=== PATIENT | female | born 1950 | race Hispanic/Latino ===

== ENCOUNTER 2019-02-15 20:44 | Emergency (ER) | payer OTHER ==
[~2019-02-15 20:44] MED LIST: ASPI-555 PO; BUPR150T8 PO; CALC-190 PO; CANA1TAB3 PO; INSU100C6 SQ; LOSA100T58 PO; METO-391 PO; OMEG300C3 PO; ROSU10TA PO
[2019-02-15 21:53] LABS: BASOPHILS % (AUTO) 0.9 % (0.0-5.0); EOSINOPHILS % (AUTO) 0.1 % (0.0-8.0); HEMATOCRIT 33.9 % (36-48); LYMPHOCYTES % (AUTO) 13.4 % (21.0-51.0); MEAN CORPUSCULAR HEMOGLOBIN 28.4 pg (27.0-33.0); MEAN CORPUSCULAR HGB CONC 33.4 g/dL (32.0-36.0); MEAN CORPUSCULAR VOLUME 84.9 fL (79-99); MONOCYTES % (AUTO) 5.9 % (3.0-13.0); NEUTROPHILS % (AUTO) 79.7 % (40.0-77.0); NUCLEATED RED BLOOD CELLS 0.1 % (0.0-0.19); PLATELET COUNT (AUTO) 189 K/uL (130-400); RED CELL DISTRIBUTION WIDTH 14.5 % (11.0-15.5); WHITE BLOOD COUNT (AUTO) 8.1 K/uL (4.8-10.8)
[2019-02-15 22:06] LABS: CREATININE 1.6 mg/dL (0.5-1.5); POTASSIUM 4.4 mmol/L (3.5-5.1)
[2019-02-15 22:11] LABS: APPEARANCE,URINE CLOUDY (CLEAR); BILIRUBIN,URINE NEGATIVE (NEGATIVE); COLOR,URINE YELLOW (YELLOW); GLUCOSE, URINE (UA) >=1000 mg/dL (NEGATIVE); KETONES,URINE NEGATIVE (NEGATIVE); LEUKOCYTE ESTERASE ,URINE TRACE (NEGATIVE); NITRATE,URINE POSITIVE (NEGATIVE); OCCULT BLOOD,URINE MODERATE (NEGATIVE); PROTEIN,URINE >=300 mg/dL (NEGATIVE); UROBILINOGEN,URINE 0.2 mg/dL (0.2-1.0)
[2019-02-15 22:15] LABS: ALBUMIN 3.1 g/dL (3.5-5.0); BILIRUBIN,TOTAL 0.5 mg/dL (0.2-1.0); TOTAL PROTEIN, SERUM 6.9 g/dL (6.0-8.3)
[2019-02-15] MEDS ORDERED: 0.9% SODIUM CHLORIDE 500 ML IV BAG IV ONE (22:34)
[2019-02-15 22:41] LABS: INR 0.95 (0.85-1.15); PARTIAL THROMBOPLASTIN TIME 29.3 SEC (26.3-35.5)
[2019-02-15 22:44] LABS: AMORPHOUS SEDIMENT,UR Moderate /LPF (None Seen); BACTERIA,URINE Many /HPF (None Seen); MUCUS,URINE Rare LPF (None Seen); SQUAMOUS EPITHELIAL CELL,UR Rare /HPF (0-2); WBC,URINE 51-100 /HPF (0-1)
[2019-02-15] MEDS ORDERED: 0.9% SODIUM CHLORIDE 1000 ML IV BAG IV ONE (23:12)
[2019-02-15] MEDS ORDERED: CEFTRIAXONE SODIUM 1 GM ONE (23:51)
== END 2019-02-16 00:36 | disposition home or self-care (01) ==
LOC: EDH 20:44
DX: N39.0 Urinary tract infection, site not specified (principal); E10.9 Type 1 diabetes mellitus without complications; I10 Essential (primary) hypertension; E78.5 Hyperlipidemia, unspecified; I25.810 Atherosclerosis of coronary artery bypass graft(s) without angina pectoris; Z86.73 Personal history of transient ischemic attack (TIA), and cerebral infarction without residual deficits; Z90.710 Acquired absence of both cervix and uterus; Z72.0 Tobacco use
CPT/HCPCS: 36415; 70450; 80053; 81001; 85025; 85610; 85730; 87077; 87088; 87186; 87804 ×2; 96361; 96374; 99284; J0696; J7030; J7040

== ENCOUNTER → 2020-09-12 | Outpatient (CLI) | payer OTHER ==
[~2020-09-12] MED LIST changes: -ASPI-555 PO; +ASPI-556 PO; +REGADENOSON 0.4 MG/5 ML PF SYG IVP SCH; -ROSU10TA PO; +ROSU10TA22 PO
== END | disposition home or self-care (01) ==
LOC: SHCH 08:18
PROVIDERS: ATTEND Internal Medicine Cardiovascular Disease
DX: R07.9 Chest pain, unspecified (principal); R06.00 Dyspnea, unspecified
CPT/HCPCS: 78452; 93017; 96374; A9500 ×2; J2785

== ENCOUNTER 2021-04-24 17:24 | Observation (INO) | payer OTHER ==
[~2021-04-24] VITALS: Ht 157.5 cm; Wt 56.7 kg
[~2021-04-24 17:24] MED LIST changes: -REGADENOSON 0.4 MG/5 ML PF SYG IVP SCH
[2021-04-24 18:07] LABS: EOSINOPHILS % (AUTO) 2.8 % (0.0-8.0); HEMATOCRIT 32.2 % (36-48); LYMPHOCYTES % (AUTO) 30.1 % (21.0-51.0); MEAN CORPUSCULAR HEMOGLOBIN 29.1 pg (27.0-33.0); MEAN CORPUSCULAR HGB CONC 32.6 g/dL (32.0-36.0); MEAN CORPUSCULAR VOLUME 89.2 fL (79-99); MONOCYTES % (AUTO) 5.9 % (3.0-13.0); NEUTROPHILS % (AUTO) 59.9 % (40.0-77.0); PLATELET COUNT (AUTO) 238 K/uL (130-400); RED BLOOD CELL COUNT(AUTO) 3.61 MIL/uL (4.00-5.50); RED CELL DISTRIBUTION WIDTH 13.6 % (11.0-15.5); WHITE BLOOD COUNT (AUTO) 10.2 K/uL (4.8-10.8)
[2021-04-24 18:23] LABS: CREATININE 1.9 mg/dL (0.5-1.5); POTASSIUM 5.4 mmol/L (3.5-5.1)
[2021-04-24 18:25] LABS: B-TYPE NATRIURETIC PEPTIDE 743 pg/mL (0-100)
[2021-04-24] MEDS ORDERED: ASPIRIN 325 MG TABLET ONE (18:27)
[2021-04-24 18:28] LABS: ALBUMIN 3.3 g/dL (3.5-5.0); BILIRUBIN,TOTAL 0.4 mg/dL (0.2-1.0); INR 1.01 (0.85-1.15)
[2021-04-24 18:29] LABS: PARTIAL THROMBOPLASTIN TIME 25.8 SEC (26.3-35.5)
[2021-04-24] MEDS ORDERED: ONDANSETRON HCL 4 MG/2 ML VIAL IV PRN (20:30)
[2021-04-24] MEDS ORDERED: NITROGLYCERIN 0.4 MG SL TAB SL PRN (20:30)
[2021-04-24] MEDS ORDERED: SODIUM CHLORIDE 0.9% 1000ML 1,000 ML IV SCH (20:30)
[2021-04-24] MEDS ORDERED: LACTULOSE 20 GM/30 ML UDCUP PO PRN (20:30)
[2021-04-24] MEDS ORDERED: ACETAMINOPHEN 325 MG TAB PO PRN ×2 (20:30)
[2021-04-24] MEDS: HEPARIN SODIUM 5000UNIT/ML 1ML VIAL SQ SCH (21:00)
[2021-04-24] MEDS: INSULIN HUMULIN R 100 UNIT/ML 3ML SQ SCH (21:00)
[2021-04-24] MEDS: FAMOTIDINE 20MG TAB 20 MG TAB PO SCH (21:00)
[2021-04-24] MEDS ORDERED: SODIUM POLYSTYRENE SULFONATE 15 GM/60 ML ML ONE (21:03)
[2021-04-24] MEDS ORDERED: HEPARIN SODIUM 5000UNIT/ML 1ML VIAL ONE (21:03)
[2021-04-24] MEDS ORDERED: SODIUM CHLORIDE 0.9% 1000ML 1,000 ML IV ONE (21:04)
[2021-04-24] MEDS ORDERED: FAMOTIDINE/PF 20 MG/2 ML VIAL IV ONE (21:04)
[2021-04-24 21:07] LABS: ABG OXYGEN SATURATION 41.4 % (95.0-99.0); HCO3,VENOUS BLOOD GAS 20.4 (21.0-28.0); PCO2,VENOUS BLOOD GAS 39 (32-45); PH,VENOUS BLOOD GAS 7.333 (7.350-7.450)
[2021-04-24] MEDS ORDERED: INSULIN HUMULIN R 100 UNIT/ML 3ML ONE (21:21)
[2021-04-24 21:24] LABS: ALBUMIN 3.2 g/dL (3.5-5.0); BILIRUBIN,TOTAL 0.3 mg/dL (0.2-1.0); CREATININE 2.2 mg/dL (0.5-1.5); POTASSIUM 4.8 mmol/L (3.5-5.1); TOTAL PROTEIN, SERUM 6.6 g/dL (6.0-8.3)
[2021-04-24 21:33] LABS: THYROID STIMULATING HORMONE 5.4 uIU/mL (0.36-3.74)
[2021-04-24 22:03] LABS: APPEARANCE,URINE Cloudy (CLEAR); BILIRUBIN,URINE Negative (NEGATIVE); COLOR,URINE Yellow (YELLOW); GLUCOSE, URINE (UA) Negative (NEGATIVE); KETONES,URINE Trace mg/dL (NEGATIVE); LEUKOCYTE ESTERASE ,URINE Moderate (NEGATIVE); NITRATE,URINE Negative (NEGATIVE); OCCULT BLOOD,URINE Negative (NEGATIVE); PROTEIN,URINE 300 mg/dL (NEGATIVE)
[2021-04-24 22:47] LABS: BACTERIA,URINE Many /HPF (None Seen); RBC,URINE 0-1 /HPF (0-1); SQUAMOUS EPITHELIAL CELL,UR None Seen /HPF (0-2)
[2021-04-25] MEDS: CEFTRIAXONE SODIUM 1 GM IVP SCH (06:15)
[2021-04-25 06:20] LABS: BASOPHILS % (AUTO) 0.9 % (0.0-5.0); HEMATOCRIT 34.2 % (36-48); LYMPHOCYTES % (AUTO) 16.9 % (21.0-51.0); MEAN CORPUSCULAR HEMOGLOBIN 29.3 pg (27.0-33.0); MEAN CORPUSCULAR HGB CONC 32.5 g/dL (32.0-36.0); MEAN CORPUSCULAR VOLUME 90.2 fL (79-99); MONOCYTES % (AUTO) 3.5 % (3.0-13.0); NEUTROPHILS % (AUTO) 77.3 % (40.0-77.0); PLATELET COUNT (AUTO) 237 K/uL (130-400); RED BLOOD CELL COUNT(AUTO) 3.79 MIL/uL (4.00-5.50); RED CELL DISTRIBUTION WIDTH 13.9 % (11.0-15.5); WHITE BLOOD COUNT (AUTO) 11.2 K/uL (4.8-10.8)
[2021-04-25 06:31] LABS: HEMOGLOBIN A1C 8.4 % (4.0-6.0)
[2021-04-25 06:34] LABS: ALBUMIN 3.5 g/dL (3.5-5.0); BILIRUBIN,TOTAL 0.5 mg/dL (0.2-1.0); CREATININE 1.8 mg/dL (0.5-1.5); MAGNESIUM 2.2 mg/dL (1.80-2.40); PHOSPHORUS 4.7 mg/dL (2.5-4.9); POTASSIUM 4.5 mmol/L (3.5-5.1); TOTAL PROTEIN, SERUM 7.1 g/dL (6.0-8.3)
[2021-04-25] MEDS: INSULIN HUMULIN R 100 UNIT/ML 3ML SQ SCH ×4 (07:30→21:00)
[2021-04-25] MEDS: HEPARIN SODIUM 5000UNIT/ML 1ML VIAL SQ SCH ×2 (09:00→21:00)
[2021-04-25] MEDS ORDERED: HEPARIN SODIUM 5000UNIT/ML 1ML VIAL ONE ×2 (09:15→21:19)
[2021-04-25] MEDS ORDERED: CEFTRIAXONE SODIUM 1 GM ONE (09:15)
[2021-04-25 12:41] LABS: ALBUMIN 3.4 g/dL (3.5-5.0); BILIRUBIN,TOTAL 0.3 mg/dL (0.2-1.0); CREATININE 1.8 mg/dL (0.5-1.5); POTASSIUM 4.1 mmol/L (3.5-5.1); TOTAL PROTEIN, SERUM 7.3 g/dL (6.0-8.3)
[2021-04-25 15:39] LABS: ALBUMIN 3.1 g/dL (3.5-5.0); BILIRUBIN,TOTAL 0.3 mg/dL (0.2-1.0); CREATININE 1.8 mg/dL (0.5-1.5); POTASSIUM 4.3 mmol/L (3.5-5.1); TOTAL PROTEIN, SERUM 6.7 g/dL (6.0-8.3)
[2021-04-25] MEDS: FAMOTIDINE 20MG TAB 20 MG TAB PO SCH (21:00)
[2021-04-25] MEDS ORDERED: FAMOTIDINE 20MG TAB 20 MG TAB ONE (21:19)
[2021-04-25] MEDS ORDERED: INSULIN HUMULIN R 100 UNIT/ML 3ML ONE (21:20)
[2021-04-26 05:55] LABS: HEMATOCRIT 32.1 % (36-48); MEAN CORPUSCULAR HEMOGLOBIN 29.5 pg (27.0-33.0); MEAN CORPUSCULAR VOLUME 89.4 fL (79-99); RED BLOOD CELL COUNT(AUTO) 3.59 MIL/uL (4.00-5.50); RED CELL DISTRIBUTION WIDTH 13.8 % (11.0-15.5); WHITE BLOOD COUNT (AUTO) 10.3 K/uL (4.8-10.8)
[2021-04-26 06:09] LABS: CREATININE 1.6 mg/dL (0.5-1.5); MAGNESIUM 2.1 mg/dL (1.80-2.40); POTASSIUM 4.3 mmol/L (3.5-5.1)
[2021-04-26] MEDS: CEFTRIAXONE SODIUM 1 GM IVP SCH (06:15)
[2021-04-26] MEDS ORDERED: CEFTRIAXONE SODIUM 1 GM ONE (08:20)
[2021-04-26] MEDS ORDERED: SODIUM CHLORIDE 0.9% 50 ML IV ONE (08:21)
[2021-04-26] MEDS ORDERED: LOSARTAN 100 MG TABLET PO SCH (09:00)
[2021-04-26] MEDS ORDERED: INSULIN LISPRO 100 UNIT/ML 3ML SQ SCH (09:00)
[2021-04-26] MEDS ORDERED: FISH OIL 1000 MG/CAP PO SCH (09:00)
[2021-04-26] MEDS ORDERED: INVOKAMET PO SCH (09:00)
[2021-04-26] MEDS ORDERED: BUPROPION HCL 150 MG TABLET.SA PO SCH (09:00)
[2021-04-26] MEDS ORDERED: ASPIRIN 81 MG EC TAB PO SCH (09:00)
[2021-04-26] MEDS ORDERED: ATORVASTATIN CALCIUM 20 MG TABLET PO SCH (09:00)
== END 2021-04-26 14:00 | disposition home or self-care (01) ==
LOC: EDH 17:24 → EDHIP 20:16 → 3AH 04-26 08:18
PROVIDERS: ADMIT Internal Medicine Critical Care Medicine; ATTEND Internal Medicine Critical Care Medicine
DX: I49.8 Other specified cardiac arrhythmias (principal); N17.9 Acute kidney failure, unspecified; I12.9 Hypertensive chronic kidney disease with stage 1 through stage 4 chronic kidney disease, or unspecified chronic kidney disease; E11.22 Type 2 diabetes mellitus with diabetic chronic kidney disease; N18.4 Chronic kidney disease, stage 4 (severe); E78.5 Hyperlipidemia, unspecified; I49.3 Ventricular premature depolarization; N39.0 Urinary tract infection, site not specified; B96.20 Unspecified Escherichia coli [E. coli] as the cause of diseases classified elsewhere; E87.5 Hyperkalemia; I25.10 Atherosclerotic heart disease of native coronary artery without angina pectoris; F17.200 Nicotine dependence, unspecified, uncomplicated; Z86.73 Personal history of transient ischemic attack (TIA), and cerebral infarction without residual deficits; Z90.710 Acquired absence of both cervix and uterus; Z95.1 Presence of aortocoronary bypass graft; Z79.4 Long term (current) use of insulin; Z79.82 Long term (current) use of aspirin; Z79.899 Other long term (current) drug therapy
CPT/HCPCS: 36415 ×3; 36600; 71045; 76770; 80048; 80053 ×5; 81001; 82550; 82803; 82948 ×4; 83036; 83735 ×3; 83880; 84100; 84439; 84443; 84484; 85025 ×2; 85027; 85610; 85730; 87077; 87088; 87186; 93005; 99285; G0378 ×42; J0696 ×2; J1644 ×3; J1815 ×2; J3490; J7030

== ENCOUNTER 2022-11-06 17:27 | Inpatient (IN) | payer OTHER ==
[~2022-11-06] VITALS: Ht 157.5 cm; Wt 54.1 kg
[~2022-11-06 17:27] MED LIST changes: +AMIO200T68 PO; +AMLO-257 PO; +BUPR-113 PO; -BUPR150T8 PO; +MIDO2.5T PO; +ROSU20TA31 PO
[2022-11-06] MEDS ORDERED: CLONIDINE HCL 0.2 MG TABLET PO ONE (18:00)
[2022-11-06 18:30] LABS: BASOPHILS % (AUTO) 1.3 % (0.0-5.0); EOSINOPHILS % (AUTO) 9.1 % (0.0-8.0); HEMATOCRIT 29.7 % (36-48); LYMPHOCYTES % (AUTO) 25.4 % (21.0-51.0); MEAN CORPUSCULAR HEMOGLOBIN 29.3 pg (27.0-33.0); MEAN CORPUSCULAR VOLUME 88.7 fL (79-99); MONOCYTES % (AUTO) 6.7 % (3.0-13.0); NEUTROPHILS % (AUTO) 57.2 % (40.0-77.0); PLATELET COUNT (AUTO) 283 K/uL (130-400); RED BLOOD CELL COUNT(AUTO) 3.35 MIL/uL (4.00-5.50); RED CELL DISTRIBUTION WIDTH 14.5 % (11.0-15.5); WHITE BLOOD COUNT (AUTO) 9.8 K/uL (4.8-10.8)
[2022-11-06 18:38] LABS: CREATININE 3.7 mg/dL (0.5-1.5); POTASSIUM 3.6 mmol/L (3.5-5.1)
[2022-11-06 18:47] LABS: ALBUMIN 2.5 g/dL (3.5-5.0); TOTAL PROTEIN, SERUM 6.4 g/dL (6.0-8.3)
[2022-11-06] MEDS ORDERED: ASPIRIN 81MG CHEW TAB PO ONE (19:00)
[2022-11-06] MEDS ORDERED: HEPARIN 5,000 UNIT VIAL IV ONE (19:00)
[2022-11-06] MEDS ORDERED: NITROGLYCERIN 1GM OINT 1 INCH/1GM TD ONE (19:30)
[2022-11-06] MEDS ORDERED: HEPARIN 25,000 UNITS/250ML D5W 250 ML IV SCH (19:30)
[2022-11-06] MEDS ORDERED: CLOPIDOGREL 300MG TAB PO ONE (19:30)
[2022-11-06 19:52] LABS: INR 0.93 (0.85-1.15); PROTHROMBIN TIME 9.7 SEC (9.6-11.6)
[2022-11-06 19:53] LABS: PARTIAL THROMBOPLASTIN TIME 26.8 SEC (26.3-35.5)
[2022-11-06 20:47] LABS: APPEARANCE,URINE CLOUDY (CLEAR); BILIRUBIN,URINE NEGATIVE (NEGATIVE); COLOR,URINE LIGHT-YELLOW (YELLOW); GLUCOSE, URINE (UA) 500 mg/dL (NEGATIVE); KETONES,URINE NEGATIVE (NEGATIVE); LEUKOCYTE ESTERASE ,URINE NEGATIVE Leu/uL (NEGATIVE); NITRATE,URINE NEGATIVE (NEGATIVE); OCCULT BLOOD,URINE SMALL (NEGATIVE); PH,URINE 6.5 (5.0-8.0); PROTEIN,URINE 300 mg/dL (NEGATIVE); UROBILINOGEN,URINE 0.2 mg/dL (0.2-1.0)
[2022-11-06 20:49] LABS: BACTERIA,URINE RARE /HPF (None Seen); SQUAMOUS EPITHELIAL CELL,UR MANY /HPF (0-2)
[2022-11-06] MEDS ORDERED: ONDANSETRON 4MG INJ IVP PRN (21:30)
[2022-11-06] MEDS ORDERED: ACETAMINOPHEN 325 MG TAB PO PRN (21:30)
[2022-11-06] MEDS ORDERED: MORPHINE 2 MG SYG IVP PRN (21:30)
[2022-11-06] MEDS ORDERED: HYDROCODONE/ACETAMINOPHEN 5/325 MG TAB PO PRN (21:30)
[2022-11-06] MEDS ORDERED: HYDRALAZINE 20MG/ML VIAL IV PRN (21:30)
[2022-11-06] MEDS ORDERED: 0.9%NACL 1000ML 1,000 ML IV SCH (21:30)
[2022-11-07] VITALS (9 sets, daily range): BP systolic 142–180; BP diastolic 64–89
[2022-11-07] MEDS: INSULIN HUMULIN R 100 UNIT/ML 3ML SQ SCH ×4 (05:50→21:08)
[2022-11-07 06:01] LABS: HEMATOCRIT 25.5 % (36-48); MEAN CORPUSCULAR HGB CONC 33.3 g/dL (32.0-36.0); RED BLOOD CELL COUNT(AUTO) 2.93 MIL/uL (4.00-5.50); RED CELL DISTRIBUTION WIDTH 14.6 % (11.0-15.5); WHITE BLOOD COUNT (AUTO) 9.2 K/uL (4.8-10.8)
[2022-11-07 06:24] LABS: CREATININE 3.6 mg/dL (0.5-1.5); MAGNESIUM 1.9 mg/dL (1.80-2.40); PHOSPHORUS 4.4 mg/dL (2.5-4.9)
[2022-11-07 07:17] LABS: INR 0.95 (0.85-1.15); PROTHROMBIN TIME 10.3 SEC (9.6-11.6)
[2022-11-07 07:18] LABS: PARTIAL THROMBOPLASTIN TIME 108.2 SEC (26.3-35.5)
[2022-11-07] MEDS: METOPROLOL SUCCINATE 50 MG TAB.SR.24H PO SCH (08:25)
[2022-11-07] MEDS: ASPIRIN 81MG CHEW TAB PO SCH (08:25)
[2022-11-07] MEDS ORDERED: GUAIFENESIN SUGAR-FREE 100 MG/5 ML UDCUP PO PRN (13:00)
[2022-11-07] MEDS ORDERED: 0.9%NACL 100ML 100 ML ONE (15:25)
[2022-11-07] MEDS: CEFTRIAXONE 2GM VIAL IVP SCH (16:03)
[2022-11-07] MEDS ORDERED: HEPARIN 5,000 UNIT VIAL SQ SCH (17:00)
[2022-11-07] MEDS: FUROSEMIDE 20MG VIAL IV SCH (18:36)
[2022-11-07 20:13] LABS: ABG BASE EXCESS -13.4 mmol/L (-2.0-3.0); ABG HCO3 13.9 mmol/L (21.0-28.0); ABG OXYGEN SATURATION 92.4 % (95.0-99.0); ABG PCO2 37 mmHg (32-45)
[2022-11-07] MEDS ORDERED: LORAZEPAM 2 MG/ML 1 ML VIAL ONE (20:24)
[2022-11-07] MEDS ORDERED: LORAZEPAM 2 MG/ML 1 ML VIAL IVP SCH (20:30)
[2022-11-07] MEDS ORDERED: FUROSEMIDE 40MG VIAL IV SCH (20:30)
[2022-11-07] MEDS: ATORVASTATIN 40 MG TABLET PO SCH (20:33)
[2022-11-07] MEDS ORDERED: SIMVASTATIN 20 MG TABLET PO SCH (21:00)
[2022-11-07] MEDS: METRONIDAZOLE 500MG/100ML BAG 100 ML IVPB SCH (21:05)
[2022-11-07] MEDS: HEPARIN 5,000 UNIT VIAL SQ SCH (21:07)
[2022-11-07 22:22] LABS: ABG BASE EXCESS -4.4 mmol/L (-2.0-3.0); ABG HCO3 20.4 mmol/L (21.0-28.0); ABG OXYGEN SATURATION 99.4 % (95.0-99.0); ABG PCO2 37 mmHg (32-45)
[2022-11-08] VITALS: BP 135/72
[2022-11-08 04:00] VITALS: BP 149/78
[2022-11-08 04:30] LABS: HEMOGLOBIN A1C 7.8 % (4.0-6.0)
[2022-11-08 04:51] LABS: ALBUMIN 2.1 g/dL (3.5-5.0); CREATININE 3.8 mg/dL (0.5-1.5); MAGNESIUM 1.9 mg/dL (1.80-2.40); POTASSIUM 4.1 mmol/L (3.5-5.1); THYROID STIMULATING HORMONE 13.01 uIU/mL (0.36-3.74); TOTAL PROTEIN, SERUM 5.7 g/dL (6.0-8.3)
[2022-11-08 05:39] LABS: HEMATOCRIT 26.6 % (36-48); MEAN CORPUSCULAR HEMOGLOBIN 29.7 pg (27.0-33.0); MEAN CORPUSCULAR HGB CONC 33.8 g/dL (32.0-36.0); MEAN CORPUSCULAR VOLUME 87.8 fL (79-99); RED BLOOD CELL COUNT(AUTO) 3.03 MIL/uL (4.00-5.50); RED CELL DISTRIBUTION WIDTH 14.7 % (11.0-15.5); WHITE BLOOD COUNT (AUTO) 11.7 K/uL (4.8-10.8)
[2022-11-08] MEDS: LEVOTHYROXINE 50 MCG TABLET PO SCH (05:48)
[2022-11-08] MEDS: FUROSEMIDE 20MG VIAL IV SCH (05:48)
[2022-11-08] MEDS: METRONIDAZOLE 500MG/100ML BAG 100 ML IVPB SCH ×3 (05:48→20:52)
[2022-11-08] MEDS: INSULIN HUMULIN R 100 UNIT/ML 3ML SQ SCH ×4 (06:59→20:55)
[2022-11-08 07:48] VITALS: BP 138/59
[2022-11-08] MEDS: FAMOTIDINE 20MG TAB PO SCH (08:54)
[2022-11-08] MEDS: METOPROLOL SUCCINATE 50 MG TAB.SR.24H PO SCH (08:54)
[2022-11-08] MEDS: ASPIRIN 81MG CHEW TAB PO SCH (08:54)
[2022-11-08] MEDS: HEPARIN 5,000 UNIT VIAL SQ SCH ×2 (08:56→19:51)
[2022-11-08 12:02] VITALS: BP 138/67
[2022-11-08] MEDS ORDERED: 0.9%NACL 100ML 100 ML ONE (14:53)
[2022-11-08] MEDS: CEFTRIAXONE 2GM VIAL IVP SCH (14:57)
[2022-11-08 16:19] VITALS: BP 145/55
[2022-11-08] MEDS: FUROSEMIDE 40MG VIAL IV SCH (17:09)
[2022-11-08] MEDS: IPRATROPIUM/ALBUTEROL SULFATE 3 ML SOLUTION IH SCH (18:34)
[2022-11-08 19:12] VITALS: BP 178/76
[2022-11-08] MEDS: ATORVASTATIN 40 MG TABLET PO SCH (19:52)
[2022-11-09] VITALS (7 sets, daily range): BP systolic 126–178; BP diastolic 52–82
[2022-11-09] MEDS: IPRATROPIUM/ALBUTEROL SULFATE 3 ML SOLUTION IH SCH ×5 (01:32→23:52)
[2022-11-09 04:14] LABS: BASOPHILS % (AUTO) 1.3 % (0.0-5.0); EOSINOPHILS % (AUTO) 3.3 % (0.0-8.0); HEMATOCRIT 25.3 % (36-48); LYMPHOCYTES % (AUTO) 18.6 % (21.0-51.0); MEAN CORPUSCULAR HEMOGLOBIN 29.2 pg (27.0-33.0); MEAN CORPUSCULAR HGB CONC 32.8 g/dL (32.0-36.0); MEAN CORPUSCULAR VOLUME 89.1 fL (79-99); MONOCYTES % (AUTO) 7.2 % (3.0-13.0); NEUTROPHILS % (AUTO) 69.3 % (40.0-77.0); PLATELET COUNT (AUTO) 249 K/uL (130-400); RED BLOOD CELL COUNT(AUTO) 2.84 MIL/uL (4.00-5.50); RED CELL DISTRIBUTION WIDTH 14.6 % (11.0-15.5); WHITE BLOOD COUNT (AUTO) 11.7 K/uL (4.8-10.8)
[2022-11-09 04:39] LABS: % IRON SATURATION 14.5 % (22-44)
[2022-11-09 04:44] LABS: CREATININE 4.4 mg/dL (0.5-1.5); MAGNESIUM 1.6 mg/dL (1.80-2.40); PHOSPHORUS 5.4 mg/dL (2.5-4.9); POTASSIUM 3.3 mmol/L (3.5-5.1); TOTAL PROTEIN, SERUM 5.5 g/dL (6.0-8.3)
[2022-11-09] MEDS: METRONIDAZOLE 500MG/100ML BAG 100 ML IVPB SCH ×3 (05:20→20:37)
[2022-11-09] MEDS: FUROSEMIDE 40MG VIAL IV SCH (05:21)
[2022-11-09] MEDS: LEVOTHYROXINE 50 MCG TABLET PO SCH (05:21)
[2022-11-09] MEDS ORDERED: MAGNESIUM 2GM PREMIX 50ML 50 ML IV PRN (05:30)
[2022-11-09] MEDS ORDERED: POTASSIUM CHLORIDE 10MEQ SR TAB PO SCH (05:30)
[2022-11-09] MEDS: INSULIN HUMULIN R 100 UNIT/ML 3ML SQ SCH ×4 (06:04→19:40)
[2022-11-09] MEDS: PAROXETINE HCL 20 MG TABLET PO SCH (09:48)
[2022-11-09] MEDS: ASPIRIN 81MG CHEW TAB PO SCH (09:48)
[2022-11-09] MEDS: FAMOTIDINE 20MG TAB PO SCH (09:48)
[2022-11-09] MEDS: METOPROLOL SUCCINATE 50 MG TAB.SR.24H PO SCH (09:48)
[2022-11-09] MEDS: HEPARIN 5,000 UNIT VIAL SQ SCH ×2 (09:56→20:44)
[2022-11-09] MEDS: AMLODIPINE 5 MG TAB PO SCH (11:45)
[2022-11-09] MEDS ORDERED: IRON SUCROSE COMPLEX 100 MG in 0.9%NACL 50ML 50 ML IV SCH (13:00)
[2022-11-09] MEDS: IRON SUCROSE COMPLEX 100 MG/5 ML VIAL IVP SCH (13:54)
[2022-11-09] MEDS: CEFTRIAXONE 2GM VIAL IVP SCH (13:54)
[2022-11-09] MEDS: ATORVASTATIN 40 MG TABLET PO SCH (20:37)
[2022-11-10 04:09] VITALS: BP 156/73
[2022-11-10 04:10] LABS: BASOPHILS % (AUTO) 1.6 % (0.0-5.0); EOSINOPHILS % (AUTO) 7.5 % (0.0-8.0); HEMATOCRIT 26.4 % (36-48); LYMPHOCYTES % (AUTO) 15.1 % (21.0-51.0); MEAN CORPUSCULAR HEMOGLOBIN 29.2 pg (27.0-33.0); MEAN CORPUSCULAR HGB CONC 32.6 g/dL (32.0-36.0); MEAN CORPUSCULAR VOLUME 89.5 fL (79-99); MONOCYTES % (AUTO) 6.5 % (3.0-13.0); NEUTROPHILS % (AUTO) 68.9 % (40.0-77.0); PLATELET COUNT (AUTO) 260 K/uL (130-400); RED BLOOD CELL COUNT(AUTO) 2.95 MIL/uL (4.00-5.50); RED CELL DISTRIBUTION WIDTH 14.6 % (11.0-15.5); WHITE BLOOD COUNT (AUTO) 10.3 K/uL (4.8-10.8)
[2022-11-10 04:43] LABS: ALBUMIN 2.1 g/dL (3.5-5.0); CREATININE 4.3 mg/dL (0.5-1.5); MAGNESIUM 2.3 mg/dL (1.80-2.40); POTASSIUM 3.3 mmol/L (3.5-5.1); TOTAL PROTEIN, SERUM 5.7 g/dL (6.0-8.3)
[2022-11-10] MEDS: LEVOTHYROXINE 50 MCG TABLET PO SCH (06:47)
[2022-11-10] MEDS: METRONIDAZOLE 500MG/100ML BAG 100 ML IVPB SCH ×3 (06:47→20:44)
[2022-11-10] MEDS: INSULIN HUMULIN R 100 UNIT/ML 3ML SQ SCH ×4 (06:47→21:00)
[2022-11-10] MEDS: IPRATROPIUM/ALBUTEROL SULFATE 3 ML SOLUTION IH SCH ×4 (06:57→23:43)
[2022-11-10 07:58] VITALS: BP 152/74
[2022-11-10] MEDS: PAROXETINE HCL 20 MG TABLET PO SCH (09:04)
[2022-11-10] MEDS: FAMOTIDINE 20MG TAB PO SCH (09:04)
[2022-11-10] MEDS: AMLODIPINE 5 MG TAB PO SCH (09:05)
[2022-11-10] MEDS: IRON SUCROSE COMPLEX 100 MG/5 ML VIAL IVP SCH (09:05)
[2022-11-10] MEDS: ASPIRIN 81MG CHEW TAB PO SCH (09:05)
[2022-11-10] MEDS: METOPROLOL SUCCINATE 50 MG TAB.SR.24H PO SCH (09:13)
[2022-11-10] MEDS: HEPARIN 5,000 UNIT VIAL SQ SCH ×2 (09:23→20:45)
[2022-11-10 12:11] VITALS: BP 145/57
[2022-11-10] MEDS: CEFTRIAXONE 2GM VIAL IVP SCH (15:27)
[2022-11-10] MEDS ORDERED: KCL 20 MEQ ERTAB PO ONE (16:00)
[2022-11-10 16:26] VITALS: BP 140/70
[2022-11-10 20:00] VITALS: BP 150/71
[2022-11-10] MEDS: ATORVASTATIN 40 MG TABLET PO SCH (20:44)
[2022-11-11] VITALS: BP 144/77
[2022-11-11 04:00] VITALS: BP 149/67
[2022-11-11 04:12] LABS: HEMATOCRIT 25.1 % (36-48); MEAN CORPUSCULAR HEMOGLOBIN 29.6 pg (27.0-33.0); MEAN CORPUSCULAR HGB CONC 33.1 g/dL (32.0-36.0); MEAN CORPUSCULAR VOLUME 89.6 fL (79-99); RED BLOOD CELL COUNT(AUTO) 2.8 MIL/uL (4.00-5.50); RED CELL DISTRIBUTION WIDTH 14.6 % (11.0-15.5); WHITE BLOOD COUNT (AUTO) 11.3 K/uL (4.8-10.8)
[2022-11-11 04:33] LABS: CREATININE 4.2 mg/dL (0.5-1.5); PHOSPHORUS 5.5 mg/dL (2.5-4.9); POTASSIUM 3.7 mmol/L (3.5-5.1); TOTAL PROTEIN, SERUM 5.4 g/dL (6.0-8.3)
[2022-11-11] MEDS: METRONIDAZOLE 500MG/100ML BAG 100 ML IVPB SCH ×2 (05:02→13:24)
[2022-11-11] MEDS: LEVOTHYROXINE 50 MCG TABLET PO SCH (05:02)
[2022-11-11] MEDS: IPRATROPIUM/ALBUTEROL SULFATE 3 ML SOLUTION IH SCH ×2 (06:21→11:04)
[2022-11-11] MEDS: INSULIN HUMULIN R 100 UNIT/ML 3ML SQ SCH ×2 (06:24→13:22)
[2022-11-11 07:30] VITALS: BP 153/64
[2022-11-11] MEDS: FAMOTIDINE 20MG TAB PO SCH (09:45)
[2022-11-11] MEDS: IRON SUCROSE COMPLEX 100 MG/5 ML VIAL IVP SCH (09:46)
[2022-11-11] MEDS: ASPIRIN 81MG CHEW TAB PO SCH (09:46)
[2022-11-11] MEDS: AMLODIPINE 5 MG TAB PO SCH (09:46)
[2022-11-11] MEDS: PAROXETINE HCL 20 MG TABLET PO SCH (09:46)
[2022-11-11] MEDS: METOPROLOL SUCCINATE 50 MG TAB.SR.24H PO SCH (09:46)
[2022-11-11] MEDS: HEPARIN 5,000 UNIT VIAL SQ SCH (10:13)
[2022-11-11 11:00] VITALS: BP 158/83
[2022-11-11] MEDS ORDERED: METO50TA9 PO (15:01)
[2022-11-11] MEDS ORDERED: PARO-149 PO (15:01)
[2022-11-11] MEDS ORDERED: 0.9%NACL 100ML 100 ML ONE (15:45)
[2022-11-11] MEDS: CEFTRIAXONE 2GM VIAL IVP SCH (15:49)
[2022-11-11 16:00] VITALS: BP 129/55
[2022-11-12] MEDS ORDERED: AMOX1TAB41 PO (08:37)
== END 2022-11-11 17:31 | disposition home or self-care (01) | DRG 280 ==
LOC: EDH 17:27 → EDHIP 21:13 → 2DH 11-07 02:26
PROVIDERS: ADMIT Internal Medicine Critical Care Medicine; ATTEND Internal Medicine Critical Care Medicine
DX: I13.2 Hypertensive heart and chronic kidney disease with heart failure and with stage 5 chronic kidney disease, or end stage renal disease (principal); I50.43 Acute on chronic combined systolic (congestive) and diastolic (congestive) heart failure; I21.A1 Myocardial infarction type 2; J18.9 Pneumonia, unspecified organism; J96.01 Acute respiratory failure with hypoxia; N17.9 Acute kidney failure, unspecified; N18.5 Chronic kidney disease, stage 5; I16.1 Hypertensive emergency; I16.0 Hypertensive urgency; E11.65 Type 2 diabetes mellitus with hyperglycemia; Z95.1 Presence of aortocoronary bypass graft; I25.10 Atherosclerotic heart disease of native coronary artery without angina pectoris; E11.22 Type 2 diabetes mellitus with diabetic chronic kidney disease; I65.23 Occlusion and stenosis of bilateral carotid arteries; Z91.199 Patient's noncompliance with other medical treatment and regimen due to unspecified reason
CPT/HCPCS: 36415; 36600; 70450; 71045; 71250; 80048; 80053; 80061; 81001; 82550; 82803; 82948; 83036; 83540; 83550; 83605; 83735; 83874; 83880; 84100; 84145; 84443; 84484; 85025; 85027; 85378; 85610; 85730; 87040; 87635; 87804; 92610; 93005; 93306; 93356; 93970; 94640; 94660; 94664; 94760; 97039; G0378; J0696; J1644; J1756; J1815; J1940; J2060; J2405; J3475; J3490

== ENCOUNTER 2024-06-10 17:42 | Observation (INO) | payer OTHER ==
[~2024-06-10] VITALS: Ht 157.5 cm; Wt 55.3 kg
[~2024-06-10 17:42] MED LIST changes: -AMIO200T68 PO; -AMLO-257 PO; +AMLO-258 PO; +AMOX-426 PO; -ASPI-556 PO; -BUPR-113 PO; -CALC-190 PO; -CANA1TAB3 PO; +CLOP-31 PO; -INSU100C6 SQ; +INSU3INS9 SQ; +LEVO75TA10 PO; +LISI40TA9 PO; -LOSA100T58 PO; +METH4TAB3 PO; -METO-391 PO; +METO25TA6 PO; -MIDO2.5T PO; -OMEG300C3 PO; -ROSU10TA22 PO; -ROSU20TA31 PO
[2024-06-10 18:39] LABS: BASOPHILS # (AUTO) 0.05 K/uL (0.00-0.20); BASOPHILS % (AUTO) 0.4 % (0.0-5.0); EOSINOPHILS # (AUTO) 0.15 K/uL (0.00-0.70); EOSINOPHILS % (AUTO) 1.2 % (0.0-8.0); HEMATOCRIT 29.8 % (36-48); IMMATURE GRANULOCYTE ABSOLUTE 0.06 K/uL (0-1); LYMPHOCYTES # (AUTO) 1.6 K/uL (1.0-4.8); MEAN CORPUSCULAR HEMOGLOBIN 31.2 pg (27.0-33.0); MEAN CORPUSCULAR HGB CONC 33.6 g/dL (32.0-36.0); MEAN CORPUSCULAR VOLUME 92.8 fL (79-99); MONOCYTES # (AUTO) 0.9 K/uL (0.1-1.0); NEUTROPHILS # (AUTO) 9.5 K/uL (1.8-7.7); NEUTROPHILS % (AUTO) 77.9 % (40.0-77.0); PLATELET COUNT (AUTO) 161 K/uL (130-400); RED BLOOD CELL COUNT(AUTO) 3.21 MIL/uL (4.00-5.50); RED CELL DISTRIBUTION WIDTH 14.4 % (11.0-15.5); WHITE BLOOD COUNT (AUTO) 12.2 K/uL (4.8-10.8)
[2024-06-10] MEDS: ASPIRIN 81MG CHEW TAB PO ONE (18:44)
[2024-06-10] MEDS: NITROGLYCERIN 1GM OINT 1 INCH/1GM TD ONE (18:45)
[2024-06-10 18:49] LABS: CREATININE 4.1 mg/dL (0.5-1.0); POTASSIUM 3.8 mmol/L (3.5-5.1)
[2024-06-10 18:54] LABS: ALBUMIN 3.3 g/dL (3.5-5.0); BILIRUBIN,TOTAL 0.8 mg/dL (0.2-1.0); TOTAL PROTEIN, SERUM 7.5 g/dL (6.0-8.3)
[2024-06-10 19:09] LABS: PROTHROMBIN TIME 10.8 SEC (9.6-11.6)
[2024-06-10 19:11] LABS: PARTIAL THROMBOPLASTIN TIME 52.7 SEC (26.3-35.5)
[2024-06-10 19:14] LABS: COVID19 (SARS ANTIGEN RAPID) PRESUMPTIVE NEGATIVE (NEGATIVE); INFLUENZA TYPE A Negative For Type A (NEGATIVE); INFLUENZA TYPE B Negative For Type B (NEGATIVE)
[2024-06-10 20:20] LABS: APPEARANCE,URINE CLEAR (CLEAR); BILIRUBIN,URINE NEGATIVE (NEGATIVE); COLOR,URINE LIGHT-YELLOW (YELLOW); GLUCOSE, URINE (UA) TRACE mg/dL (NEGATIVE); KETONES,URINE NEGATIVE (NEGATIVE); LEUKOCYTE ESTERASE ,URINE NEGATIVE Leu/uL (NEGATIVE); NITRATE,URINE NEGATIVE (NEGATIVE); OCCULT BLOOD,URINE NEGATIVE (NEGATIVE); PH,URINE 8.5 (5.0-8.0); PROTEIN,URINE 300 mg/dL (NEGATIVE); UROBILINOGEN,URINE 0.2 mg/dL (0.2-1.0)
[2024-06-10 20:27] LABS: ADD UA MICROSCOPIC YES
[2024-06-10 20:29] LABS: BACTERIA,URINE FEW /HPF (None Seen); MUCUS,URINE RARE LPF (None Seen); OTHER CASTS, URINE 2 /LPF (None Seen); SQUAMOUS EPITHELIAL CELL,UR FEW /HPF (0-2)
[2024-06-10] MEDS ORDERED: DOCUSATE SODIUM 100 MG CAP PO PRN (21:00)
[2024-06-10] MEDS ORDERED: TEMAZEPAM 15 MG CAPSULE PO PRN (21:00)
[2024-06-10] MEDS ORDERED: HYDRALAZINE 20MG/ML VIAL IV PRN (21:00)
[2024-06-10] MEDS ORDERED: ACETAMINOPHEN 650 MG SUPPOSITORY RC PRN (21:00)
[2024-06-10] MEDS ORDERED: ONDANSETRON 4MG INJ IVP PRN (21:00)
[2024-06-10] MEDS ORDERED: LACTULOSE 20 GM/30 ML UDCUP PO PRN (21:00)
[2024-06-10] MEDS ORDERED: IPRATROPIUM/ALBUTEROL SULFATE 3 ML SOLUTION IH PRN (21:00)
[2024-06-10] MEDS: PANTOPRAZOLE 40 MG/VIAL IVP SCH (21:19)
[2024-06-10] MEDS: CLONIDINE HCL 0.2 MG TABLET PO ONE (21:20)
[2024-06-10] MEDS: HEPARIN 5,000 UNIT VIAL SQ SCH (21:20)
[2024-06-10] MEDS: INSULIN HUMULIN R 100 UNIT/ML 3ML SQ SCH (21:32)
[2024-06-10 22:13] VITALS: PULSE 84; RESP 18; O2SAT 95
[2024-06-10] MEDS: CETIRIZINE HCL 5 MG TABLET PO SCH (22:49)
[2024-06-10] MEDS: ATORVASTATIN 40 MG TABLET PO SCH (22:49)
[2024-06-11] MEDS: ACETAMINOPHEN 325 MG TAB PO PRN (01:57)
[2024-06-11 07:21] VITALS: PULSE 65; RESP 18; O2SAT 97
[2024-06-11 08:06] LABS: BASOPHILS # (AUTO) 0.04 K/uL (0.00-0.20); BASOPHILS % (AUTO) 0.5 % (0.0-5.0); EOSINOPHILS # (AUTO) 0.15 K/uL (0.00-0.70); IMMATURE GRANULOCYTE ABSOLUTE 0.02 K/uL (0-1); LYMPHOCYTES # (AUTO) 1.7 K/uL (1.0-4.8); MEAN CORPUSCULAR HGB CONC 33.6 g/dL (32.0-36.0); MEAN CORPUSCULAR VOLUME 92.3 fL (79-99); MONOCYTES # (AUTO) 0.8 K/uL (0.1-1.0); MONOCYTES % (AUTO) 10.5 % (3.0-13.0); NEUTROPHILS # (AUTO) 4.8 K/uL (1.8-7.7); NEUTROPHILS % (AUTO) 64.7 % (40.0-77.0); PLATELET COUNT (AUTO) 139 K/uL (130-400); RED BLOOD CELL COUNT(AUTO) 2.71 MIL/uL (4.00-5.50); RED CELL DISTRIBUTION WIDTH 14.8 % (11.0-15.5); WHITE BLOOD COUNT (AUTO) 7.5 K/uL (4.8-10.8)
[2024-06-11 08:43] LABS: CREATININE 5.8 mg/dL (0.5-1.0); MAGNESIUM 1.9 mg/dL (1.80-2.40); PHOSPHORUS 5.7 mg/dL (2.5-4.9); THYROID STIMULATING HORMONE 3.54 uIU/mL (0.36-3.74)
[2024-06-11] MEDS ORDERED: NITROGLYCERIN 0.4 MG SL TAB SL PRN (09:30)
[2024-06-11] MEDS: ASPIRIN 81MG CHEW TAB PO SCH (11:28)
[2024-06-11 11:58] LABS: ABG BASE EXCESS 2.6 mmol/L (-2.0-3.0); ABG HCO3 25.2 mmol/L (21.0-28.0); ABG OXYGEN SATURATION 94.6 % (95.0-99.0); ABG PCO2 33 mmHg (32-45); ABG PH 7.498 (7.35-7.450); DEVICE COMMENT RBJOSEPH; PO2, ARTERIAL BG 65.6 mmHg (83.0-108.0); VENT MODE, BG RA (ROOM AIR)
[2024-06-11 14:34] LABS: % IRON SATURATION 25.6 % (22-44)
[2024-06-11 15:53] VITALS: BP 141/66; PULSE 81; RESP 18; O2SAT 97
[2024-06-11] MEDS: AMLODIPINE 5 MG TAB PO SCH (15:58)
[2024-06-11] MEDS ORDERED: EPOETIN ALFA-EPBX (NON-ESRD) 10,000 UNIT/ML VIAL SQ SCH (16:00)
[2024-06-11] MEDS ORDERED: METOPROLOL TARTRATE 25 MG TAB PO SCH (21:00)
[2024-06-12] MEDS ORDERED: PANTOPRAZOLE 40 MG TAB DR PO SCH (09:00)
== END 2024-06-11 18:00 | disposition home or self-care (01) ==
LOC: EDH 17:42 → EDHIP 20:45
PROVIDERS: ADMIT Internal Medicine; ATTEND Internal Medicine
DX: R07.89 Other chest pain (principal); Z20.822 Contact with and (suspected) exposure to COVID-19; I12.0 Hypertensive chronic kidney disease with stage 5 chronic kidney disease or end stage renal disease; E11.22 Type 2 diabetes mellitus with diabetic chronic kidney disease; N18.6 End stage renal disease; D63.1 Anemia in chronic kidney disease; I25.10 Atherosclerotic heart disease of native coronary artery without angina pectoris; E87.70 Fluid overload, unspecified; E11.65 Type 2 diabetes mellitus with hyperglycemia; E44.1 Mild protein-calorie malnutrition; E78.00 Pure hypercholesterolemia, unspecified; E03.9 Hypothyroidism, unspecified; Z90.710 Acquired absence of both cervix and uterus; Z79.82 Long term (current) use of aspirin; Z79.899 Other long term (current) drug therapy; Z86.16 Personal history of COVID-19; Z86.73 Personal history of transient ischemic attack (TIA), and cerebral infarction without residual deficits; Z95.1 Presence of aortocoronary bypass graft; Z99.2 Dependence on renal dialysis
CPT/HCPCS: 96374; 96372 ×2; 99285; 84484 ×4; 80053; 83880; 85025 ×2; 85610; 85730; 87804 ×2; 82948 ×2; 87426; 81001; 36415 ×2; 71045; 93005 ×2; 96376; 84443; 83540; 83550; 83735; 84100; 80048; 82803; 93306; 93356; 76376; 36600; J1815; G0378 ×20; J1644 ×2; Q5106; J2470

== ENCOUNTER 2024-06-17 10:15 | Observation (INO) | payer OTHER ==
[~2024-06-17] VITALS: Ht 152.4 cm; Wt 59.0 kg
[2024-06-17] MEDS: ONDANSETRON 4MG INJ IVP ONE (10:55)
[2024-06-17] MEDS: 0.9% NACL 500ML IV.SOLN 500 ML IV ONE (10:56)
[2024-06-17 11:10] LABS: CREATININE 3.8 mg/dL (0.5-1.0)
[2024-06-17 11:12] LABS: BASOPHILS # (AUTO) 0.05 K/uL (0.00-0.20); BASOPHILS % (AUTO) 0.5 % (0.0-5.0); EOSINOPHILS # (AUTO) 0.02 K/uL (0.00-0.70); EOSINOPHILS % (AUTO) 0.2 % (0.0-8.0); HEMATOCRIT 29.2 % (36-48); IMMATURE GRANULOCYTE ABSOLUTE 0.05 K/uL (0-1); LYMPHOCYTES # (AUTO) 0.8 K/uL (1.0-4.8); LYMPHOCYTES % (AUTO) 8.4 % (21.0-51.0); MEAN CORPUSCULAR HEMOGLOBIN 30.6 pg (27.0-33.0); MEAN CORPUSCULAR HGB CONC 33.2 g/dL (32.0-36.0); MEAN CORPUSCULAR VOLUME 92.1 fL (79-99); MONOCYTES # (AUTO) 0.6 K/uL (0.1-1.0); MONOCYTES % (AUTO) 5.7 % (3.0-13.0); NEUTROPHILS # (AUTO) 8.5 K/uL (1.8-7.7); NEUTROPHILS % (AUTO) 84.7 % (40.0-77.0); PLATELET COUNT (AUTO) 243 K/uL (130-400); RED BLOOD CELL COUNT(AUTO) 3.17 MIL/uL (4.00-5.50); RED CELL DISTRIBUTION WIDTH 14.2 % (11.0-15.5)
[2024-06-17 11:15] LABS: ALBUMIN 3.6 g/dL (3.5-5.0); BILIRUBIN,TOTAL 0.7 mg/dL (0.2-1.0); TOTAL PROTEIN, SERUM 8.4 g/dL (6.0-8.3)
[2024-06-17] MEDS ORDERED: POLYETHYLENE GLYCOL 3350 17 GM POWD.PACK PO PRN (14:00)
[2024-06-17] MEDS ORDERED: NITROGLYCERIN 0.4 MG SL TAB SL PRN (14:00)
[2024-06-17] MEDS ORDERED: DOCUSATE SODIUM 100 MG CAP PO PRN (14:00)
[2024-06-17] MEDS: HEPARIN 5,000 UNIT VIAL SQ SCH (15:59)
[2024-06-17] MEDS: INSULIN HUMULIN R 100 UNIT/ML 3ML SQ SCH (16:30)
[2024-06-17 16:37] LABS: INFLUENZA TYPE A Negative For Type A (NEGATIVE); INFLUENZA TYPE B Negative For Type B (NEGATIVE)
[2024-06-17 16:38] LABS: COVID19 (SARS ANTIGEN RAPID) PRESUMPTIVE NEGATIVE (NEGATIVE)
[2024-06-18] VITALS (50 sets, daily range): BP systolic 142–176; BP diastolic 59–87; PULSE 63–95; RESP 7–35; O2SAT 96–98
[2024-06-18] MEDS: PANTOPRAZOLE 40 MG/VIAL IVP SCH (07:42)
[2024-06-18 08:21] LABS: HEMOGLOBIN A1C 8.3 % (4.0-6.0)
[2024-06-18 08:29] LABS: ALBUMIN 3.1 g/dL (3.5-5.0); BILIRUBIN,TOTAL 0.6 mg/dL (0.2-1.0); CREATININE 5.9 mg/dL (0.5-1.0); POTASSIUM 4.5 mmol/L (3.5-5.1); TOTAL PROTEIN, SERUM 7.4 g/dL (6.0-8.3)
[2024-06-18] MEDS: ASPIRIN 81 MG EC TAB PO SCH (11:27)
[2024-06-18] MEDS: ATORVASTATIN 40 MG TABLET PO SCH (21:38)
[2024-06-18] MEDS: LOSARTAN 50 MG TABLET PO SCH (21:38)
[2024-06-18] MEDS: CARVEDILOL 3.125 MG TABLET PO SCH (21:39)
[2024-06-18] MEDS ORDERED: [UNRECOGNIZED DRUG - REMARK] MISC SCH (22:30)
[2024-06-19] VITALS (25 sets, daily range): BP systolic 72–187; BP diastolic 41–89; PULSE 68–85; RESP 14–20; TEMP 97.7–98.7; O2SAT 96–100
[2024-06-19 03:58] LABS: HEMATOCRIT 27.9 % (36-48); MEAN CORPUSCULAR HEMOGLOBIN 30.3 pg (27.0-33.0); MEAN CORPUSCULAR VOLUME 91.8 fL (79-99); RED BLOOD CELL COUNT(AUTO) 3.04 MIL/uL (4.00-5.50); RED CELL DISTRIBUTION WIDTH 14.5 % (11.0-15.5)
[2024-06-19 04:28] LABS: ALBUMIN 2.9 g/dL (3.5-5.0); BILIRUBIN,TOTAL 0.5 mg/dL (0.2-1.0); CREATININE 7.5 mg/dL (0.5-1.0); MAGNESIUM 1.9 mg/dL (1.80-2.40); POTASSIUM 4.7 mmol/L (3.5-5.1); THYROID STIMULATING HORMONE 3.22 uIU/mL (0.36-3.74); TOTAL PROTEIN, SERUM 6.8 g/dL (6.0-8.3)
[2024-06-19] MEDS: LEVOTHYROXINE 75 MCG TABLET PO SCH (05:32)
[2024-06-19] MEDS ORDERED: NON-FORMULARY MEDICATION 1 EACH (Amlodipine Besylate 1 TAB) PO SCH (09:00)
[2024-06-19] MEDS: CLOPIDOGREL 75MG TAB PO SCH (09:00)
[2024-06-19] MEDS: AMLODIPINE 5 MG TAB PO SCH (09:00)
[2024-06-19] MEDS ORDERED: PHARMACY COMMUNICATION MISC SCH (11:00)
[2024-06-19] MEDS: METOPROLOL TARTRATE 25 MG TAB PO SCH (13:45)
[2024-06-19] MEDS ORDERED: FURO40TA5 PO (14:41)
[2024-06-19] MEDS ORDERED: LISI40TA9 PO (14:41)
[2024-06-19] MEDS ORDERED: ROSU20TA73 PO (14:41)
[2024-06-19] MEDS ORDERED: CLOP75TA32 PO (14:41)
[2024-06-19] MEDS ORDERED: LEVO5TAB13 PO (14:41)
[2024-06-19] MEDS ORDERED: CLON0.1T PO (14:41)
[2024-06-19] MEDS ORDERED: MIRT-22 PO (14:41)
[2024-06-19] MEDS ORDERED: AMLO-257 PO (14:41)
[2024-06-19] MEDS ORDERED: LEVO25CA4 PO (14:41)
[2024-06-19] MEDS ORDERED: INSU3INS9 SQ (14:56)
[2024-06-19] MEDS ORDERED: METO25TA6 PO (14:56)
[2024-06-19] MEDS ORDERED: HEPARIN 5,000 UNIT VIAL IV SCH (15:30)
[2024-06-19] MEDS: CLONIDINE HCL 0.1 MG TABLET PO SCH (19:42)
[2024-06-20] MEDS ORDERED: LISINOPRIL 40 MG TABLET PO SCH (09:00)
[2024-06-20 12:26] LABS: HEPATITIS B SURFACE ANTIBODY Negative (Reactive); HEPATITIS B SURFACE ANTIGEN Non-Reactive (Nonreactive)
[2024-06-20 12:27] LABS: HEPATITIS B CORE AB TOTAL Non-Reactive (Nonreactive)
[2024-06-21] MEDS ORDERED: EPOETIN ALFA-EPBX (NON-ESRD) 10,000 UNIT/ML VIAL SQ SCH (21:00)
== END 2024-06-19 21:09 | disposition home or self-care (01) ==
LOC: EDH 10:15 → EDHIP 13:44 → 2CH 06-18 08:45 → 2DH 06-19 01:27
PROVIDERS: ADMIT Internal Medicine; ATTEND Internal Medicine
DX: I21.4 Non-ST elevation (NSTEMI) myocardial infarction (principal); I13.2 Hypertensive heart and chronic kidney disease with heart failure and with stage 5 chronic kidney disease, or end stage renal disease; E11.22 Type 2 diabetes mellitus with diabetic chronic kidney disease; N18.6 End stage renal disease; R41.82 Altered mental status, unspecified; R11.2 Nausea with vomiting, unspecified; I50.42 Chronic combined systolic (congestive) and diastolic (congestive) heart failure; D63.8 Anemia in other chronic diseases classified elsewhere; I25.10 Atherosclerotic heart disease of native coronary artery without angina pectoris; Z79.4 Long term (current) use of insulin; Z86.16 Personal history of COVID-19; Z99.2 Dependence on renal dialysis; Z95.1 Presence of aortocoronary bypass graft; Z20.822 Contact with and (suspected) exposure to COVID-19
CPT/HCPCS: 96372 ×3; 96374; 99285; 82550; 84484 ×4; 80053 ×3; 85025; 87040 ×2; 87804 ×2; 82948 ×9; 87426; 36415 ×3; 71045; 93005; 96376; 96375; 83036; 83690 ×2; 71250; 74176; 97161; 97116; 84145; 84443; 83735; 85027; 86706; 87340; 86704; 76700; 90935; J1815 ×3; G0378 ×51; J7040; J2405; J1644 ×4; J2470; G0257

== ENCOUNTER 2024-10-06 11:03 | Observation (INO) | payer OTHER ==
[2024-10-06] VITALS (11 sets, daily range): BP systolic 121–175; BP diastolic 60–82; PULSE 85–98; RESP 14–16; TEMP 97.5–97.7
[~2024-10-06] VITALS: Ht 149.9 cm; Wt 56.7 kg
[~2024-10-06 11:03] MED LIST changes: +AMLO-257 PO; -AMLO-258 PO; +CLON0.1T PO; -CLOP-31 PO; +CLOP75TA32 PO; +DOXY100C61 PO; +FURO40TA5 PO; +HYDR50TA37 PO; +LEVO25CA4 PO; +LEVO5TAB13 PO; -LEVO75TA10 PO; -LISI40TA9 PO; -METH4TAB3 PO; +MIRT-22 PO; +ROSU20TA98 PO
--- NOTE | 2024-10-06 12:04 | ERN ---
General Chief Complaint: Shortness of Breath Stated Complaint: N/V, SOB Time Seen by MD: 11:05 History of Present Illness Initial Comments 74-year-old female presents for nausea vomiting and dyspnea beginning a couple hours prior to arrival. Patient is dialysis dependent, she has a an LAVH. She goes Tuesdays, , Saturdays. She missed this weeks dialysis session yesterday, her last was Friday, about 96 hours ago. She reports dyspnea. She denies chest pain. She denies sore throat cough or congestion. Patient was brought in by EMS with a blood pressure 197/98, 89% on room air, placed on 2 L nasal cannula. Glucose 324. Medical history: Hypertension, diabetes, CHF, dyslipidemia, ESRD on dialysis Clip Wrapper: Sparkle Allergies: Coded Allergies: No Known Drug Allergies (Unverified Allergy, Unknown, 07/05/15) Home Meds Active Scripts Doxycycline Monohydrate (Doxycycline Monohydrate) 100 Mg Capsule, 1 CAP PO BID for 5 Days, #10 CAP 0 Refills Prov:ELOINA STRICKLAND PASTORAL ASSISTANT 09/16/24 Amoxicillin/Potassium Clav (Augmentin 500-125 Tablet) 500 Mg-125 Mg Tablet, 1 TAB PO DAILY for 5 Days, #5 TAB 0 Refills Prov:ELOINA STRICKLAND PASTORAL ASSISTANT 09/16/24 Reported Medications Hydralazine HCl (Hydralazine HCl) 50 Mg Tablet, 50 MG PO TID, TAB 09/14/24 Insulin Degludec/Liraglutide (Xultophy 100 Unit-3.6 mg/ml) 100 Unit-3.6 Mg/Ml (3 Ml) Insuln.pen, 3 ML SQ DAILY, SYRINGE 06/19/24 Metoprolol Tartrate (Metoprolol Tartrate) 25 Mg Tablet, 25 MG PO BIDAC, TAB 06/19/24 Rosuvastatin Calcium (Rosuvastatin Calcium) 20 Mg Tablet, 20 MG PO DAILY, TAB 06/19/24 Clopidogrel Bisulfate (Clopidogrel) 75 Mg Tablet, 75 MG PO DAILY, TAB 06/19/24 Levothyroxine Sodium (Levothyroxine) 25 Mcg Capsule, 25 MCG PO DAILY, CAP 06/19/24 Amlodipine Besylate (Amlodipine Besylate) 5 Mg Tablet, 5 MG PO DAILY, TAB 06/19/24 Furosemide (Furosemide) 40 Mg Tablet, 40 MG PO DAILY, TAB 06/19/24 Levocetirizine Dihydrochloride (Levocetirizine Dihydrochloride) 5 Mg Tablet, 5 MG PO HS, TAB 06/19/24 Mirtazapine (Mirtazapine) 15 Mg Tablet, 15 MG PO HS, TAB 06/19/24 Clonidine HCl (Clonidine HCl) 0.1 Mg Tablet, 0.1 MG PO BID, TAB 06/19/24 Past Medical History Past Medical History: Diabetes-Type II, Hypertension, Renal Disese, Renal Failure Medical History Other: CKD ON DIALYSIS Past Surgical History: Other Surgical History Other: R CHEST PORT A CATH Family History Family History: CAD, DM, HTN Social History Social History: Negative, Lives with family, Other Female( History) History: Not Applicable ROS Dictation CONSTITUTIONAL: No chills, no fever, no weakness, no diaphoresis, no malaise. HEAD/FACE: No signs of trauma. EENT: No eye pain, no blurred vision, no tearing, no double vision, no ear pain, no ear discharge, no nose pain, no nasal congestion, no throat pain, no throat swelling, no mouth pain. RESPIRATORY: Dyspnea CARDIOVASCULAR: No chest pain, no edema, no palpitations, no syncope. GASTROINTESTINAL/ABDOMINAL: Nausea, no vomiting, no abdominal pain GENITOURINARY: No abnormal discharge, no dysuria, no frequent urination, no hematuria. No complaints of pain in the genitals. MUSCULOSKELETAL: No back pain, no gout, no joint pain, no joint swelling, no muscle pain, no muscle stiffness, no neck pain. INTEGUMENTARY: No change in color, no change in hair/nails, no dryness, no lesion, no lumps, no rash. NEUROLOGICAL/PSYCH: No anxiety, not depressed, no emotional problem, no headache, no numbness, no pre-existing deficit, no history of seizures, no tremors, no weakness. HEMATOLOGIC/LYMPHATIC: Not anemic, no history of blood clots, no apparent ble eding, no bruising, glands not swollen. All Systems Negative, Except as Noted. Physical Exam Physical Exam Dictation VITAL SIGNS: Reviewed. GENERAL APPEARANCE: Alert, oriented x3, mild distress due to dyspnea HEAD AND FACE: Non-traumatic. EYES: PERRL, pink conjunctivas, eyelid no trauma, anterior chamber clear. EARS: Pinnas intact and no signs of trauma or erythema. Ear canals clear and no discharge. TMs no erythema. NOSE: No discharge, no bleeding. OROPHARYNX: Mouth normal, teeth no caries, tongue pink. Pharynx clear, no erythema. Tonsils no exudates, no abscesses noted. Mucous membrane moist. NECK: Supple, non-tender, no thyromegaly, no masses, no JVD, no bruits. BREAST: Deferred. CHEST: No tenderness, no crepitus, no paradoxical movement, no retractions. LUNGS: Crackles in the bases. HEART: Regular rate, regular rhythm, no murmur, no gallops. VASCULAR: No peripheral edema. ABDOMEN: Soft, positive bowel sounds, nondistended, no guarding, nontender, no rebound, no masses no hepatomegaly, no splenomegaly, no Trimble's sign, no hernias. RECTAL: Deferred. GENITAL: Deferred. NEUROLOGICAL: Normal speech, gross motor function intact, gross sensory function intact. MUSCULOSKELETAL: Neck nontender, full range of motion, back nontender, full range of motion. EXTREMITIES: Nontender, full range of motion. SKIN: Color pink, dry, no turgor, no rash, no lacerations, no abrasions, no contusions. LYMPHATICS: Deferred. Results Laboratory and Microbiology Lab and Micro Result Laboratory Tests Test 10/06/24 11:59 White Blood Count 9.6 K/uL (4.8-10.8) Red Blood Count 3.32 MIL/uL (4.00-5.50) L Hemoglobin 10.3 g/dL (12.0-16.0) L Hematocrit 31.2 % (36-48) L Mean Corpuscular Volume 94.0 fL (79-99) Mean Corpuscular Hemoglobin 31.0 pg (27.0-33.0) Mean Corpuscular Hemoglobin Concent 33.0 g/dL (32.0-36.0) Red Cell Distribution Width 15.8 % (11.0-15.5) H Platelet Count 215 K/uL (130-400) Mean Platelet Volume 11.2 fL (7.5-10.5) H Immature Granulocyte % (Auto) 0.3 % (0-1) Neutrophils (%) (Auto) 85.8 % (40.0-77.0) H Lymphocytes (%) (Auto) 8.4 % (21.0-51.0) L Monocytes (%) (Auto) 4.7 % (3.0-13.0) Eosinophils (%) (Auto) 0.2 % (0.0-8.0) Basophils (%) (Auto) 0.6 % (0.0-5.0) Neutrophils # (Auto) 8.2 K/uL (1.8-7.7) H Lymphocytes # (Auto) 0.8 K/uL (1.0-4.8) L Monocytes # (Auto) 0.5 K/uL (0.1-1.0) Eosinophils # (Auto) 0.02 K/uL (0.00-0.70) Basophils # (Auto) 0.06 K/uL (0.00-0.20) Absolute Immature Granulocyte (auto 0.03 K/uL (0-1) Nucleated Red Blood Cells 0.0 % (0.0-0.19) White Cell Morphology Comment See comments Sodium Level 134 mmol/L (136-145) L Potassium Level 4.6 mmol/L (3.5-5.1) Chloride Level 92 mmol/L (101-111) L Carbon Dioxide Level 24 mmol/L (21-32) Blood Urea Nitrogen 72 mg/dL (7-18) H Creatinine 10.5 mg/dL (0.5-1.0) *H Glomerular Filtration Rate Calc 3 mL/min (>90) Random Glucose 334 mg/dL (70-105) H Total Calcium 7.4 mg/dL (8.5-10.1) L Magnesium Level 2.10 mg/dL (1.80-2.40) Troponin I High Sensitivity 327 ng/L (4-50) *H B-Type Natriuretic Peptide 3810 pg/mL (0-100) H MDM CC: Nausea and dyspnea Historian: Patient Comorbidities: Hypertension, diabetes, ESRD on dialysis after missed dialysis, CHF, DLD Hypertensive, SpO2 89% on room air. Placed on 2 L oxygen. Initial concern for pulmonary edema, fluid overload, electrolyte abnormality, arrhythmia, ACS, other Patient hypoxic, placed on 2 L nasal cannula. EKG: NSR, rate 77 normal axis good R progression intervals are stable no STEMI. Interpreted me CBC shows normocytic anemia there is a left shift without bands. BNP elevated at 3800. BMP elevated BUN and creatinine. Electrolytes are stable. Troponin elevated likely type 2. CXR: Pulmonary vascular congestion, right-sided pleural effusion, CABG scar. Independently interpreted by me. Given hydralazine in the ER. Patient needs dialysis. We will admit. Hospitalist consulted. REASON: fluid overload ORDERING PHYSICIAN: SALENA IBRAHIM DO PROCEDURE: CXR1VW - CHEST 1VW CHEST 1VW HISTORY: Fluid overload COMPARISON: 09/14/2024 FINDINGS: A frontal projection of the chest was obtained. There are bilateral pulmonary infiltrates suggestive of pulmonary vascular congestion with possible superimposed pneumonitis. Poststernotomy changes are seen. The heart is enlarged. Degenerative changes of the thoracolumbar spine are present. No evidence of aortic calcification is seen. IMPRESSION: 1. Bilateral pulmonary infiltrates are seen suggestive of pulmonary vascular congestion with possible superimposed pneumonitis. ED Course Orders Procedure Category Date Status Time Cbc With Differential LAB 10/06/24 Complete 11:10 B-Type Natriuretic LAB 10/06/24 Complete Peptide 11:10 Chest 1vw RAD 10/06/24 Resulted 11:10 12 Lead Ekg Tracing- EKG 10/06/24 Complete Technical 11:10 Troponin I High LAB 10/06/24 Complete Sensitivity 11:10 Partial LAB 10/06/24 In Process Thromboplastin Time 11:10 Basic Metabolic Panel LAB 10/06/24 Complete 11:10 Magnesium LAB 10/06/24 Complete 11:10 Hydralazine 20mg Inj PHA 10/06/24 Complete (Apresoline 20mg In 12:30 Current Medications Medications (Trade) Dose Ordered Sig/Jason Route PRN Reason Start Time Stop Time Status Last Admin Dose Admin Hydralazine HCl (APRESOLine 20MG INJ) 20 mg ONCE ONCE IV 10/06/24 12:30 10/06/24 12:31 DC Vital Signs Date Time Temp Pulse Resp B/P (MAP) Pulse Ox O2 Delivery O2 Flow Rate FiO2 10/06/24 12:52 90 19 179/79 94 Nasal Cannula* 4 36 10/06/24 11:06 97.9 91 18 197/98 93 Nasal Cannula 3.0 DX & DISP Disposition: Inpatient Departure Impression: Primary Impression: Acute respiratory failure with hypoxia Additional Impressions: ESRD needing dialysis, Pulmonary edema, Anemia in chronic renal disease, Diabetes mellitus with hyperglycemia, Elevated troponin level not due to acute coronary syndrome, Fluid overload Critical Time: 30 minutes (Critical Care Procedure NoteAuthorized and Performed by: meTotal critical care time: Approximately 36 minutesDue to a high probabi lity of clinically significant, life threatening deterioration, the patient required my highest level of preparedness to intervene emergently and I personally spent this critical care time directly and personally managing the patient. This critical care time included obtaining a history; examining the patient; pulse oximetry; ordering and review of studies; arranging urgent treatment with development of a management plan; evaluation of patient's response to treatment; frequent reassessment; and, discussions with other providers.This critical care time was performed to assess and manage the high probability of imminent, life-threatening deterioration that could result in multi-organ failure. It was exclusive of separately billable procedures and treating other patients and teaching time.Please see MDM section and the rest of the note for further information on patient assessment and treatment.) Condition: Stable Referrals: MARCIA CASTILLO M.D. (PCP) SALENA IBRAHIM DO Oct 06, 2024 12:04
--- NOTE | 2024-10-06 12:14 | EKG ---
[facility] Test Date: 2024-10-06 Test Time: 11:30:37 Pat Name: JOSE VÁZQUEZ Department: ED Room: 414 Gender: F Work Manager: [id number] : 1950 Requested By: SALENA IBRAHIM Order Number: [id number] Reading MD: Amandeep Pitts Measurements Intervals [place] Rate: 90 P: 13 [place]: 124 QRS: 8 QRSD: 91 T: 81 QT: 430 QTc: 526 Interpretive Statements Sinus rhythm Anterior infarct, old Prolonged QT interval Compared to ECG 09/14/2024 09:37:25 Prolonged QT interval now present Left ventricular hypertrophy no longer present Early repolarization no longer present Myocardial infarct finding still present Electronically Signed On 10-07-2024 18:34:36 DESK OFFICER by Amandeep Pitts Please click the below link to view image of tracing.
[2024-10-06 12:16] LABS: BASOPHILS # (AUTO) 0.06 K/uL (0.00-0.20); BASOPHILS % (AUTO) 0.6 % (0.0-5.0); EOSINOPHILS # (AUTO) 0.02 K/uL (0.00-0.70); EOSINOPHILS % (AUTO) 0.2 % (0.0-8.0); HEMATOCRIT 31.2 % (36-48); IMMATURE GRANULOCYTE ABSOLUTE 0.03 K/uL (0-1); LYMPHOCYTES # (AUTO) 0.8 K/uL (1.0-4.8); LYMPHOCYTES % (AUTO) 8.4 % (21.0-51.0); MONOCYTES # (AUTO) 0.5 K/uL (0.1-1.0); MONOCYTES % (AUTO) 4.7 % (3.0-13.0); NEUTROPHILS # (AUTO) 8.2 K/uL (1.8-7.7); NEUTROPHILS % (AUTO) 85.8 % (40.0-77.0); PLATELET COUNT (AUTO) 215 K/uL (130-400); RED BLOOD CELL COUNT(AUTO) 3.32 MIL/uL (4.00-5.50); RED CELL DISTRIBUTION WIDTH 15.8 % (11.0-15.5); WHITE BLOOD COUNT (AUTO) 9.6 K/uL (4.8-10.8)
[2024-10-06 12:36] LABS: MAGNESIUM 2.1 mg/dL (1.80-2.40); POTASSIUM 4.6 mmol/L (3.5-5.1)
[2024-10-06 12:38] LABS: B-TYPE NATRIURETIC PEPTIDE 3810 pg/mL (0-100)
--- NOTE | 2024-10-06 12:45 | HMCIMG ---
CHEST 1VW HISTORY: Fluid overload COMPARISON: 09/14/2024 FINDINGS: A frontal projection of the chest was obtained. There are bilateral pulmonary infiltrates suggestive of pulmonary vascular congestion with possible superimposed pneumonitis. Poststernotomy changes are seen. The heart is enlarged. Degenerative changes of the thoracolumbar spine are present. No evidence of aortic calcification is seen. IMPRESSION: 1. Bilateral pulmonary infiltrates are seen suggestive of pulmonary vascular congestion with possible superimposed pneumonitis.
[2024-10-06 12:51] LABS: CREATININE 10.5 mg/dL (0.5-1.0)
[2024-10-06] MEDS: hydrALAZine 20MG/ML VIAL IV ONE (13:25)
[2024-10-06] MEDS ORDERED: MAG/ALUM/SIMETH 30 ML UDCUP PO PRN (13:30)
[2024-10-06] MEDS ORDERED: hydroMORPHone 0.5 MG SYG (0.5MG/0.5ML) IV PRN (13:30)
[2024-10-06] MEDS ORDERED: DiphenhydrAMINE HCL 25 MG CAPSULE PO PRN (13:30)
[2024-10-06] MEDS ORDERED: NITROGLYCERIN 0.4 MG SL TAB SL PRN (13:30)
[2024-10-06] MEDS ORDERED: guaiFENesin-DM 200/20MG 10ML PO PRN (13:30)
[2024-10-06] MEDS ORDERED: LACTULOSE 20 GM/30 ML UDCUP PO PRN (13:30)
[2024-10-06] MEDS ORDERED: ondanSETRON 4MG INJ IV PRN (13:30)
[2024-10-06] MEDS ORDERED: acetaMINOPHEN 325 MG TAB PO PRN ×2 (13:30)
[2024-10-06] MEDS ORDERED: ZOLPidem TARTrate 5 MG TAB PO PRN (13:30)
[2024-10-06] MEDS: BENZONATATE 100 MG CAPSULE PO SCH (14:00)
[2024-10-06] MEDS: 0.9%NACL 1000ML 1,000 ML IV SCH (18:54)
[2024-10-06] MEDS: FAMOTIDINE 20MG TAB PO SCH (23:22)
[2024-10-06] MEDS: HEParin 5,000 UNIT VIAL SQ SCH (23:22)
[2024-10-07] VITALS (15 sets, daily range): BP systolic 136–163; BP diastolic 56–82; PULSE 73–96; RESP 16–22; TEMP 97.5–99.5; O2SAT 98
[2024-10-07] MEDS: hydrALAZine 20MG/ML VIAL IV PRN (01:30)
[2024-10-07 02:08] LABS: HEPATITIS B SURFACE ANTIGEN Non-Reactive (Nonreactive)
--- NOTE | 2024-10-07 10:40 | HP ---
[facility] HISTORY & PHYSICAL Date Patient Seen: Oct 07, 2024 Time of Visit: 10:35 Supervising Physician:AI Primary Care Physician: MARCIA CASTILLO MD Outpatient Specialists: [ ] Inpatient Consults: [facility] PROBLEM LIST: Acute Hypoxemic Respiratory Failure Pulmonary Edema, multifactorial Acute Anasarca secondary missed HD session End stage renal disease on hemodialysis NStemi II ,asymptomatic Acute diastolic heart failure exacerbation COPD without acute exacerbation Diabetes mellitus, Type II Hypertension Hyperlipidemia Hx of CVA HPI: 74-year-old female presents for nausea vomiting and dyspnea beginning a couple hours prior to arrival. Patient is dialysis dependent, she has a an LAVH. She goes Tuesdays, , Saturdays. She missed this weeks dialysis session yesterday, her last was Friday, about 96 hours prior to presentation. She reports dyspnea. She denies chest pain. She denies sore throat cough or c ongestion. Patient was brought in by EMS with a blood pressure 197/98, 89% on room air, placed on 2 L nasal cannula. Glucose 324. Medical history: Hypertension, diabetes, CHF, dyslipidemia, ESRD on dialysis PAST MEDICAL HX: see above PAST SURGICAL HX: noncontributory SOCIAL HISTORY: No tobacco, ETOH, or illicit drug use Coded Allergies: No Known Drug Allergies (Unverified Allergy, Unknown, 07/05/15) REVIEW OF SYSTEMS: 12 point ROS reviewed with patient. Pertinent positives mentioned above. Otherwise negative. PHYSICAL EXAM: GENERAL: alert, weak, awake oriented x 3 HEENT: EOMI, Sclera non icteric, moist mucosa NECK: Supple, no JVD, trachea midline LUNGS: Clear breath sounds bilaterally. No wheezes HEART: Regular rate and rhythm. Normal S1 and S2, without murmurs ABD: Abdomen soft, nontender. Bowel sounds present EXT: No clubbing cyanosis or edema NEURO: Alert and oriented to person, follows commands Vital Signs (last 8hr) Date Time Temp Pulse Resp B/P (MAP) Pulse Ox O2 Delivery O2 Flow Rate FiO2 10/07/24 08:00 98.2 89 19 149/68 92 Room Air 0.0 10/07/24 04:00 97.7 91 20 148/70 96 Nasal Cannula 2.0 LABS: Hematology Labs: Test 10/06/24 11:59 Range/Units White Blood Count 9.6 4.8-10.8 K/uL Red Blood Count 3.32 L 4.00-5.50 MIL/uL Hemoglobin 10.3 L 12.0-16.0 g/dL Hematocrit 31.2 L 36-48 % Mean Corpuscular Volume 94.0 79-99 fL Mean Corpuscular Hemoglobin 31.0 27.0-33.0 pg Mean Corpuscular Hemoglobin Concent 33.0 32.0-36.0 g/dL Red Cell Distribution Width 15.8 H 11.0-15.5 % Platelet Count 215 130-400 K/uL Mean Platelet Volume 11.2 H 7.5-10.5 fL Immature Granulocyte % (Auto) 0.3 0-1 % Neutrophils (%) (Auto) 85.8 H 40.0-77.0 % Lymphocytes (%) (Auto) 8.4 L 21.0-51.0 % Monocytes (%) (Auto) 4.7 3.0-13.0 % Eosinophils (%) (Auto) 0.2 0.0-8.0 % Basophils (%) (Auto) 0.6 0.0-5.0 % Neutrophils # (Auto) 8.2 H 1.8-7.7 K/uL Lymphocytes # (Auto) 0.8 L 1.0-4.8 K/uL Monocytes # (Auto) 0.5 0.1-1.0 K/uL Eosinophils # (Auto) 0.02 0.00-0.70 K/uL Basophils # (Auto) 0.06 0.00-0.20 K/uL Absolute Immature Granulocyte (auto 0.03 0-1 K/uL Nucleated Red Blood Cells 0.0 0.0-0.19 % White Cell Morphology Comment See comments Chemistry Labs: Test 10/06/24 22:41 10/06/24 11:59 Range/Units Total Creatine Kinase 156 21-232 U/L Troponin I High Sensitivity 299.4 *H 4-50 ng/L Sodium Level 134 L 136-145 mmol/L Potassium Level 4.6 3.5-5.1 mmol/L Chloride Level 92 L 101-111 mmol/L Carbon Dioxide Level 24 21-32 mmol/L Blood Urea Nitrogen 72 H 7-18 mg/dL Creatinine 10.5 *H 0.5-1.0 mg/dL Glomerular Filtration Rate Calc 3 >90 mL/min Random Glucose 334 H 70-105 mg/dL Total Calcium 7.4 L 8.5-10.1 mg/dL Magnesium Level 2.10 1.80-2.40 mg/dL B-Type Natriuretic Peptide 3810 H 0-100 pg/mL Coagulation Labs: Test 10/06/24 12:25 Range/Units Activated Partial Thromboplast Time 25.4 L 26.3-35.5 [facility] / RADIOLOGY RESULTS: PATIENT: JOSE VÁZQUEZ MR#: [id number] : 1950 SEX: F AGE: 74 LOCATION: [facility] ORDER [id number] STATUS: REG ER REPORT#: [id number] SERVICE 1110 REASON: fluid overload ORDERING PHYSICIAN: SALENA IBRAHIM DO PROCEDURE: CXR1VW - CHEST 1VW CHEST 1VW HISTORY: Fluid overload COMPARISON: 09/14/2024 FINDINGS: A frontal projection of the chest was obtained. There are bilateral pulmonary infiltrates suggestive of pulmonary vascular congestion with possible superimposed pneumonitis. Poststernotomy changes are seen. The heart is enlarged. Degenerative changes of the thoracolumbar spine are present. No evidence of aortic calcification is seen. IMPRESSION: 1. Bilateral pulmonary infiltrates are seen suggestive of pulmonary vascular congestion with possible superimposed pneumonitis. DICTATED BY: GRAHAM LIN MD PLAN NEURO: Minimize central acting medications as possible. Maintain fall precautions, adequate lighting during the day PULMONARY: Supplemental 02 as needed. Maintain aspiration precautions at all times home 02 eval CARDIOVASCULAR: Follow hemodynamics. Vital signs per facility protocol GI & NUTRITION: Continue with nutritional support. Continue stool softeners and laxatives as needed. KIDNEYS & ELECTROLYTES: Strict monitoring of intake, output and overall fluid balance. Avoid nephrotoxic medications to the extent possible. Medications to be dosed according to renal function. Monitor electrolytes and replace as needed HD per nephrology ENDOCRINE: Maintain blood glucose between 100-180 at all times. Hypoglycemia protocol in place INFECTIOUS DISEASE: Trend temperature, WBC and procalcitonin level Follow cultures, deescalate antibiotics as soon as possible. Panculture if new onset fever ONCOLOGY/HEMATOLOGY/COAGULATION: Monitor for s/s of bleeding Monitor hemoglobin, coagulation studies as needed SKIN: Pressure ulcer prevention per facility protocol Specialty mattress ORTHO/REHAB: Continue PT/OT Prophylaxis: Continue GI and DVT prophylaxis Code Status: Full Resuscitation Disposition: TBD Other: Total patient care time exceeds 35 minutes excluding all procedures. CAYETANO SHAHID Oct 07, 2024 10:40
--- NOTE | 2024-10-07 11:23 | PN ---
SUBJECTIVE: A 74-year-old female with history of diabetes mellitus and hypertension. She has a history of end-stage renal disease, on dialysis 3 times per week. The patient has a history of noncompliance with her general medical care including her dialysis sessions. The patient presented to the hospital with increasing shortness of breath, orthopnea. The patient did receive urgent dialysis. The patient did not receive dialysis on 10/04/2024 secondary to noncompliance and the patient is being seen as a followup visit for all of the above. REVIEW OF SYSTEMS: GENERAL: She is feeling improved. HEENT: No change in vision. No change in hearing. CARDIOVASCULAR: There is no current chest pain or palpitations. PULMONARY: Shortness of breath is improved. GASTROINTESTINAL: She is tolerating a diet. MUSCULOSKELETAL: Complains of weakness. PHYSICAL EXAMINATION: VITAL SIGNS: Blood pressure 157/97, pulse in the 90s. GENERAL: Chronically ill female, elderly, lying in bed on medical floor. HEENT: Head is atraumatic. Pupils equal, roving to light. Oropharynx is without exudate. Nares clear. NECK: There is no JVP. There is no thyromegaly, no mass. CARDIOVASCULAR: Regular. There is no S3, S4 gallop. LUNGS: Coarse with equal thoracic movement. ABDOMEN: Soft, nondistended, nontender. EXTREMITIES: No clubbing, no cyanosis. NEUROLOGIC: She is awake. She is alert. LABORATORY DATA: Hemoglobin 10, hematocrit 31, white cell count 9000. BUN 72, creatinine is 10.5. IMPRESSION: * Respiratory distress, noncompliant with her dialysis. * Diabetes mellitus. * Hypertension. * Anemia. PLAN: The patient will receive dialysis on the day of this visit. The patient can safely be discharged from renal standpoint. The patient is highly encouraged to follow up at her dialysis sessions. She has been resumed on her antihypertensive medication. The patient with multiple questions, all of which were answered. TID: [id number] RECEIPT: [id number]
--- NOTE | 2024-10-07 14:57 | HP ---
[facility] HISTORY & PHYSICAL Date Patient Seen: Oct 07, 2024 Time of Visit: 0900 Supervising Physician: patrick ashton Primary Care Physician: MARCIA CASTILLO MD Outpatient Specialists: [ ] Inpatient Consults: [facility] PROBLEM LIST: Acute Hypoxemic Respiratory Failure Pulmonary Edema, multifactorial Acute Anasarca secondary missed HD session End stage renal disease on hemodialysis NStemi II ,asymptomatic Acute diastolic heart failure exacerbation COPD without acute exacerbation Diabetes mellitus, Type II Hypertension Hyperlipidemia Hx of CVA HPI: 74-year-old female presents for nausea vomiting and dyspnea beginning a couple hours prior to arrival. Patient is dialysis dependent, she has a an [facility]. She goes Tuesdays, , Saturdays. She missed this weeks dialysis session yesterday, her last was Friday, about 96 hours prior to presentation. She reports dyspnea. She denies chest pain. She denies sore throat cough or congestion. Patient was brought in by EMS with a blood pressure 197/98, 89% on room air, placed on 2 L nasal cannula. Glucose 324. Medical history: Hypertension, diabetes, CHF, dyslipidemia, ESRD on dialysis PAST MEDICAL HX: see above PAST SURGICAL HX: noncontributory SOCIAL HISTORY: No tobacco, ETOH, or illicit drug use Coded Allergies: No Known Drug Allergies (Unverified Allergy, Unknown, 07/05/15) REVIEW OF SYSTEMS: 12 point ROS reviewed with patient. Pertinent positives mentioned above. Otherwise negative. PHYSICAL EXAM: GENERAL: alert, weak, awake oriented x 3 HEENT: EOMI, Sclera non icteric, moist mucosa NECK: Supple, no JVD, trachea midline LUNGS: Clear breath sounds bilaterally. No wheezes HEART: Regular rate and rhythm. Normal S1 and S2, without murmurs ABD: Abdomen soft, nontender. Bowel sounds present EXT: No clubbing cyanosis or edema NEURO: Alert and oriented to person, follows commands Vital Signs (last 8hr) Date Time Temp Pulse Resp B/P (MAP) Pulse Ox O2 Delivery O2 Flow Rate FiO2 10/07/24 14:15 90 16 155/73 Room Air 10/07/24 14:00 88 16 163/77 Room Air 10/07/24 13:45 97.5 90 16 159/70 Room Air 10/07/24 13:20 99.0 92 16 158/74 Room Air 10/07/24 11:50 99.5 93 18 136/56 90 Room Air 0.0 10/07/24 08:00 98.2 89 19 149/68 92 Room Air 0.0 LABS: Hematology Labs: Test 10/06/24 11:59 Range/Units White Blood Count 9.6 4.8-10.8 K/uL Red Blood Count 3.32 L 4.00-5.50 MIL/uL Hemoglobin 10.3 L 12.0-16.0 g/dL Hematocrit 31.2 L 36-48 % Mean Corpuscular Volume 94.0 79-99 fL Mean Corpuscular Hemoglobin 31.0 27.0-33.0 pg Mean Corpuscular Hemoglobin Concent 33.0 32.0-36.0 g/dL Red Cell Distribution Width 15.8 H 11.0-15.5 % Platelet Count 215 130-400 K/uL Mean Platelet Volume 11.2 H 7.5-10.5 fL Immature Granulocyte % (Auto) 0.3 0-1 % Neutrophils (%) (Auto) 85.8 H 40.0-77.0 % Lymphocytes (%) (Auto) 8.4 L 21.0-51.0 % Monocytes (%) (Auto) 4.7 3.0-13.0 % Eosinophils (%) (Auto) 0.2 0.0-8.0 % Basophils (%) (Auto) 0.6 0.0-5.0 % Neutrophils # (Auto) 8.2 H 1.8-7.7 K/uL Lymphocytes # (Auto) 0.8 L 1.0-4.8 K/uL Monocytes # (Auto) 0.5 0.1-1.0 K/uL Eosinophils # (Auto) 0.02 0.00-0.70 K/uL Basophils # (Auto) 0.06 0.00-0.20 K/uL Absolute Immature Granulocyte (auto 0.03 0-1 K/uL Nucleated Red Blood Cells 0.0 0.0-0.19 % White Cell Morphology Comment See comments Chemistry Labs: Test 10/06/24 22:41 10/06/24 11:59 Range/Units Total Creatine Kinase 156 21-232 U/L Troponin I High Sensitivity 299.4 *H 4-50 ng/L Sodium Level 134 L 136-145 mmol/L Potassium Level 4.6 3.5-5.1 mmol/L Chloride Level 92 L 101-111 mmol/L Carbon Dioxide Level 24 21-32 mmol/L Blood Urea Nitrogen 72 H 7-18 mg/dL Creatinine 10.5 *H 0.5-1.0 mg/dL Glomerular Filtration Rate Calc 3 >90 mL/min Random Glucose 334 H 70-105 mg/dL Total Calcium 7.4 L 8.5-10.1 mg/dL Magnesium Level 2.10 1.80-2.40 mg/dL B-Type Natriuretic Peptide 3810 H 0-100 pg/mL Coagulation Labs: Test 10/06/24 12:25 Range/Units Activated Partial Thromboplast Time 25.4 L 26.3-35.5 SEC DIAGNOSTICS / RADIOLOGY RESULTS: [ ] PLAN NEURO: Minimize central acting medications as possible. Maintain fall precautions, adequate lighting during the day PULMONARY: Supplemental 02 as needed. Maintain aspiration precautions at all times home 02 eval CARDIOVASCULAR: Follow hemodynamics. Vital signs per facility protocol GI & NUTRITION: Continue with nutritional support. Continue stool softeners and laxatives as needed. KIDNEYS & ELECTROLYTES: Strict monitoring of intake, output and overall fluid balance. Avoid nephrotoxic medications to the extent possible. Medications to be dosed according to renal function. Monitor electrolytes and replace as needed HD per nephrology ENDOCRINE: Maintain blood glucose between 100-180 at all times. Hypoglycemia protocol in place INFECTIOUS DISEASE: Trend temperature, WBC and procalcitonin level Follow cultures, deescalate antibiotics as soon as possible. Panculture if new onset fever ONCOLOGY/HEMATOLOGY/COAGULATION: Monitor for s/s of bleeding Monitor hemoglobin, coagulation studies as needed SKIN: Pressure ulcer prevention per facility protocol Specialty mattress ORTHO/REHAB: Continue PT/OT Prophylaxis: Continue GI and DVT prophylaxis Code Status: Full Resuscitation Disposition: TBD Other: Total patient care time exceeds 35 minutes excluding all procedures. CAYETANO SHAHID Oct 07, 2024 14:57
--- NOTE | 2024-10-07 15:00 | DS ---
[facility] DISCHARGE SUMMARY Date Patient Seen: Oct 07, 2024 Time of Visit: 14:58 Supervising Physician: EAN CLOUD Primary Care Physician: MARCIA CASTILLO MD Outpatient Specialists: [ ] Inpatient Consults: [facility] PROBLEM LIST: Acute Hypoxemic Respiratory Failure ,RESOLVED Pulmonary Edema, multifactorial, IMPROVED Acute Anasarca secondary missed HD session ,RESOLVED End stage renal disease on hemodialysis NStemi II ,asymptomatic Acute diastolic heart failure exacerbation,RESOLVED COPD without acute exacerbation Diabetes mellitus, Type II Hypertension Hyperlipidemia Hx of CVA HOSPITAL COURSE: PATIENT WAS ADMITTED FOR MISSED HEMODIALYSIS SESSIONS. THE PATIENT UNDERWENT TWO HEMODIALYSIS SESSIONS INPATIENT AND NEPHROLOGY DID CLEAR FOR DISCHARGE. OF NOTE THE PATIENT DID HAVE ELEVATED MILD TROPONINS COMPLETELY ASYMPTOMATIC WITH DENIES OF CHEST PAIN. THIS IS LIKELY SECONDARY TO VOLUME OVERLOAD STATUS. PATIENT ENCOURAGED TO FOLLOW UP WITH PCP OUTPATIENT IN THE NEXT 2-3 DAYS. Continued Medications: Amlodipine Besylate (Amlodipine Besylate) 5 Mg Tablet 5 MG PO DAILY, TAB Clonidine HCl (Clonidine HCl) 0.1 Mg Tablet 0.1 MG PO BID, TAB Clopidogrel Bisulfate (Clopidogrel) 75 Mg Tablet 75 MG PO DAILY, TAB Furosemide (Furosemide) 40 Mg Tablet 40 MG PO DAILY, TAB Hydralazine HCl (Hydralazine HCl) 50 Mg Tablet 50 MG PO TID, TAB Insulin Degludec/Liraglutide (Xultophy 100 Unit-3.6 mg/ml) 100 Unit-3.6 Mg/Ml (3 Ml) Insuln.pen 3 ML SQ DAILY, SYRINGE Levocetirizine Dihydrochloride (Levocetirizine Dihydrochloride) 5 Mg Tablet 5 MG PO HS, TAB Levothyroxine Sodium (Levothyroxine) 25 Mcg Capsule 25 MCG PO DAILY, CAP Metoprolol Tartrate (Metoprolol Tartrate) 25 Mg Tablet 25 MG PO BIDAC, TAB Mirtazapine (Mirtazapine) 15 Mg Tablet 15 MG PO HS, TAB Rosuvastatin Calcium (Rosuvastatin Calcium) 20 Mg Tablet 20 MG PO DAILY, TAB Discontinued Medications: Amoxicillin/Potassium Clav (Augmentin 500-125 Tablet) 500 Mg-125 Mg Tablet 1 TAB PO DAILY for 5 Days, #5 TAB 0 Refills Doxycycline Monohydrate (Doxycycline Monohydrate) 100 Mg Capsule 1 CAP PO BID for 5 Days, #10 CAP 0 Refills PHYSICAL EXAM: GENERAL: alert, weak, awake oriented x 3 HEENT: EOMI, Sclera non icteric, moist mucosa NECK: Supple, no JVD, trachea midline LUNGS: Clear breath sounds bilaterally. No wheezes HEART: Regular rate and rhythm. Normal S1 and S2, without murmurs ABD: Abdomen soft, nontender. Bowel sounds present EXT: No clubbing cyanosis or edema NEURO: Alert and oriented to person, follows commands FOLLOW-UP: Follow-up with PCP in 2-3 days RECOMMENDATIONS: See Discharge Instructions This case was seen and discussed with my supervising physician. More than 30 minutes spent on discharge process, including evaluation of the patient, discussion with nursing staff, medication reconciliation and follow-up appointments CAYETANO SHAHID Oct 07, 2024 15:00
[2024-10-07 16:52] LABS: HEPATITIS B CORE AB TOTAL Non-Reactive (Nonreactive); HEPATITIS B SURFACE ANTIBODY Negative (Reactive); HEPATITIS C ANTIBODY Non-Reactive (Nonreactive)
== END 2024-10-07 16:55 | disposition home or self-care (01) ==
LOC: EDH 11:03 → EDHIP 13:29 → 4CH 10-07 01:13
PROVIDERS: ADMIT Internal Medicine; ATTEND Internal Medicine
DX: I13.2 Hypertensive heart and chronic kidney disease with heart failure and with stage 5 chronic kidney disease, or end stage renal disease (principal); E11.22 Type 2 diabetes mellitus with diabetic chronic kidney disease; I50.33 Acute on chronic diastolic (congestive) heart failure; N18.6 End stage renal disease; J96.01 Acute respiratory failure with hypoxia; J81.1 Chronic pulmonary edema; D63.1 Anemia in chronic kidney disease; E11.65 Type 2 diabetes mellitus with hyperglycemia; I21.A1 Myocardial infarction type 2; J44.9 Chronic obstructive pulmonary disease, unspecified; E78.5 Hyperlipidemia, unspecified; R79.89 Other specified abnormal findings of blood chemistry; Z79.4 Long term (current) use of insulin; Z86.73 Personal history of transient ischemic attack (TIA), and cerebral infarction without residual deficits; Z91.158 Patient's noncompliance with renal dialysis for other reason; Z91.199 Patient's noncompliance with other medical treatment and regimen due to unspecified reason; Z99.2 Dependence on renal dialysis; Z79.899 Other long term (current) drug therapy
CPT/HCPCS: 96374; 96372 ×2; 82550 ×3; 83735; 84484 ×4; 80048; 83880; 85025; 85730; 86803; 86706; 87340; 86704; 36415; 71045; 99291; 93005; 90935 ×2; 96376; G0378 ×23; J0360 ×2; J1644 ×2; G0257